=== PATIENT | female | born 1970 | race Caucasian/White ===

== ENCOUNTER 2018-03-17 09:33 | Emergency (ER) | payer MEDICAID, OTHER ==
[~2018-03-17] VITALS: Ht 172.7 cm; Wt 100.0 kg
[2018-03-17 10:58] VITALS: BP 133/83
[2018-03-17] MEDS ORDERED: KETOROLAC TROMETHAMINE 60 MG/2 ML VIAL IM ONE (11:30)
== END 2018-03-17 12:14 | disposition home or self-care (01) ==
LOC: EMS 09:33
DX: M54.41 Lumbago with sciatica, right side (principal); G89.29 Other chronic pain
CPT/HCPCS: 96372; 99283; J1885

== ENCOUNTER 2018-06-14 13:17 | Emergency (ER) | payer OTHER ==
[~2018-06-14] VITALS: Ht 170.2 cm; Wt 97.0 kg
[2018-06-14] MEDS ORDERED: KETOROLAC TROMETHAMINE 60 MG/2 ML VIAL IM ONE (15:00)
[2018-06-14] MEDS ORDERED: METHOCARBAMOL 500 MG TABLET PO ONE (15:00)
[2018-06-14 15:44] VITALS: BP 117/68
== END 2018-06-14 15:48 | disposition home or self-care (01) ==
LOC: EMS 13:18
DX: M54.5 Low back pain (principal)
CPT/HCPCS: 96372; 99283; J1885